=== PATIENT | male | born 1940 | race Caucasian/White ===

== ENCOUNTER 2017-12-03 23:40 | Emergency (ER) | payer OTHER, MEDICAID ==
[~2017-12-03] VITALS: Ht 175.3 cm; Wt 77.1 kg
--- NOTE | 2017-12-03 23:41 | NUR ---
PT KIKE BLS. TAKEN TO BED 3
--- NOTE | 2017-12-03 23:41 | NUR ---
PATIENT PRESENTS TO ED, BIB EMS FROM HOME, WITH NOSE BLEED X20 MIN, HYPERTENSIVE. PT STATES HE IS SCARED FROM THE BLOOD LOSS AND HAS NAUSEA FROM SWALLOWING BLOOD. SKIN IS PINK/WARM/DRY; AAOX4 WITH EVEN AND STEADY GAIT; LUNGS CLEAR BL; HR EVEN AND REGULAR; PT DENIES ANY FEVER, CP, SOB, OR COUGH AT THIS TIME; PATIENT STATES PAIN OF 0/10 AT THIS TIME; PT IS HYPERTENSIVE AT 177/111 AT THIS TIME. PATIENT POSITIONED FOR COMFORT; HOB ELEVATED; BEDRAILS UP X2; BED DOWN. ER MD MADE AWARE OF PT STATUS.CONTINUE TO MONITOR.
[2017-12-03 23:48] VITALS: BP 177/11
--- NOTE | 2017-12-03 23:56 | NUR ---
Dr. Burnham evaluating patient.
[2017-12-04] MEDS ORDERED: ACETAMINOPHEN EXTRA STRENGTH 500 MG TAB PO ONE (00:05)
[2017-12-04 02:36] VITALS: BP 167/107
--- NOTE | 2017-12-04 02:36 | NUR ---
Patient discharged with v/s stable with bleeding controlled. Written and verbal after care instructions given and explained. Patient verbalized understanding. Ambulatory with steady gait. All questions addressed prior to discharge. Advised to follow up with PMD.
== END 2017-12-04 02:36 | disposition home or self-care (01) ==
LOC: MED 23:40
DX: R04.0 Epistaxis (principal); I10 Essential (primary) hypertension
CPT/HCPCS: 30901; 99284